=== PATIENT | female | born 1945 | race Caucasian/White ===

== ENCOUNTER 2021-01-16 15:56 | Emergency (ER) | payer MEDICARE, OTHER ==
[2021-01-16 17:43] LABS: BASOPHIL 0.3 % (0-2); EOSINOPHIL 0.8 % (0-7); HGB 11.6 g/dl (12.5-16.0); LYMPHOCYTE 27.4 % (15-48); MCH 29.2 pg (25.0-31.0); MCHC 32.2 g/dL (32.0-36.0); MCV 90.7 fL (78.0-100.0); MONOCYTE 10.6 % (0-12); MPV 10.1 fL (6.0-9.5); NEUTROPHIL 60.7 % (41-80); NRBC 0; PLT 319 K/uL (150-400); RBC 3.97 M/uL (4.20-5.40); RDW 14.8 % (11.5-14.0); WBC 9.1 K/uL (4.0-10.5)
[2021-01-16 18:01] LABS: ALBUMIN 3.5 g/dL (3.4-5.0); BILIRUBIN - TOTAL 0.4 mg/dL (0.2-1.0); BUN/CREAT RATIO (CALC) 16.4 RATIO; CREATININE 0.55 mg/dL (0.51-0.95); GLOBULIN (CALCULATION) 3.2 g/dL; POTASSIUM 4.1 mmol/L (3.5-5.1); TOTAL PROTEIN 6.7 g/dL (6.4-8.2)
[2021-01-16 18:11] LABS: INR 2.85 (0.9-1.2); PROTHROMBIN TIME 28.5 SECONDS (11.4-13.6)
[2021-01-16 18:44] LABS: CORONAVIRUS 2019 SARS-COV-2 NEGATIVE (NEGATIVE); INFLUENZA A NAA NEGATIVE (NEGATIVE)
== END 2021-01-16 21:05 | disposition home or self-care (01) ==
LOC: FER 15:56
PROVIDERS: Nurse Practitioner Family
DX: R10.9 Unspecified abdominal pain (principal); R19.7 Diarrhea, unspecified; Z20.822 Contact with and (suspected) exposure to COVID-19; I10 Essential (primary) hypertension; Z88.2 Allergy status to sulfonamides; Z88.8 Allergy status to other drugs, medicaments and biological substances
CPT/HCPCS: 36415; 80053; 85025; 85610; 93005; J2405; J7030; Q9967; U0002

== ENCOUNTER 2021-01-24 15:42 | Emergency (ER) | payer MEDICARE, OTHER ==
[2021-01-24 18:19] LABS: BASOPHIL 0.6 % (0-2); EOSINOPHIL 1.1 % (0-7); HCT 35.2 % (37.0-47.0); HGB 11.5 g/dl (12.5-16.0); LYMPHOCYTE 26.9 % (15-48); MCH 29.6 pg (25.0-31.0); MCHC 32.7 g/dL (32.0-36.0); MCV 90.5 fL (78.0-100.0); MONOCYTE 9.9 % (0-12); MPV 9.9 fL (6.0-9.5); NEUTROPHIL 61.2 % (41-80); NRBC 0; PLT 313 K/uL (150-400); RBC 3.89 M/uL (4.20-5.40); RDW 14.8 % (11.5-14.0); WBC 8.7 K/uL (4.0-10.5)
[2021-01-24 18:33] LABS: TOTAL CELL COUNT 100
[2021-01-24 18:36] LABS: BAND 4 % (0-10); EOSINOPHIL(M) 1 % (0-7); LYMPHOCYTE(M) 23 % (15-48); MONOCYTE(M) 6 % (0-12); NEUTROPHILS(M) 66 % (41-80); PLATELET ESTIMATE NORMAL; PLATELET MORPHOLOGY NORMAL
[2021-01-24 18:41] LABS: ALBUMIN 3.4 g/dL (3.4-5.0); BILIRUBIN - TOTAL 0.2 mg/dL (0.2-1.0); BUN/CREAT RATIO (CALC) 25.9 RATIO; CREATININE 0.54 mg/dL (0.51-0.95); GLOBULIN (CALCULATION) 3.2 g/dL; POTASSIUM 4.1 mmol/L (3.5-5.1); TOTAL PROTEIN 6.6 g/dL (6.4-8.2)
[2021-01-24 19:13] LABS: INR 2.92 (0.9-1.2); PROTHROMBIN TIME 29.1 SECONDS (11.4-13.6)
== END 2021-01-24 20:39 | disposition home or self-care (01) ==
LOC: FER 15:42
PROVIDERS: Emergency Medicine
DX: I35.0 Nonrheumatic aortic (valve) stenosis (principal); I10 Essential (primary) hypertension; Z86.73 Personal history of transient ischemic attack (TIA), and cerebral infarction without residual deficits; Z86.711 Personal history of pulmonary embolism; Z86.718 Personal history of other venous thrombosis and embolism; Z88.2 Allergy status to sulfonamides; Z88.8 Allergy status to other drugs, medicaments and biological substances
CPT/HCPCS: 36415; 71045; 80053; 83880; 84145; 84484; 85379; 85610; 93005

== ENCOUNTER 2021-04-25 12:59 | Inpatient (IN) | payer MEDICARE, OTHER ==
[~2021-04-25] VITALS: Ht 155 cm; Wt 43.7 kg
[2021-04-25 14:44] LABS: BASOPHIL 0.3 % (0-2); EOSINOPHIL 0 % (0-7); HCT 16.3 % (37.0-47.0); LYMPHOCYTE 16.6 % (15-48); MCH 29.1 pg (25.0-31.0); MCHC 32.5 g/dL (32.0-36.0); MCV 89.6 fL (78.0-100.0); MONOCYTE 5.7 % (0-12); MPV 10.9 fL (6.0-9.5); NEUTROPHIL 75.8 % (41-80); NRBC 0; PLT 263 K/uL (150-400); RDW 15.4 % (11.5-14.0)
[2021-04-25 14:45] LABS: HGB 5.3 g/dl (12.5-16.0); RBC 1.82 M/uL (4.20-5.40)
[2021-04-25 15:09] LABS: LACTIC ACID 0.8 mmol/L (0.4-1.9)
[2021-04-25 15:11] LABS: PROTHROMBIN TIME 112.5 SECONDS (11.8-13.4)
[2021-04-25 15:12] LABS: INR 15.78 (0.9-1.2)
[2021-04-25 15:13] LABS: PTT 124.5 SECONDS (24.4-34.7)
[2021-04-25 15:25] LABS: ALBUMIN 2.6 g/dL (3.4-5.0); BILIRUBIN - TOTAL 0.2 mg/dL (0.2-1.0); BUN/CREAT RATIO (CALC) 50.9 RATIO; CREATININE 0.57 mg/dL (0.51-0.95); GLOBULIN (CALCULATION) 2.5 g/dL; POTASSIUM 4.4 mmol/L (3.5-5.1); TOTAL PROTEIN 5.1 g/dL (6.4-8.2)
[2021-04-25] MEDS ORDERED: OMEPRAZOLE40 MG PO (23:17)
[2021-04-25] MEDS ORDERED: TEMAZEPAM15 MG PO (23:17)
[2021-04-25] MEDS ORDERED: DULOXETINE HCL20 MG PO (23:18)
[2021-04-25] MEDS ORDERED: NIFEDIPINE ER30 M1 PO (23:18)
[2021-04-25] MEDS ORDERED: COZAAR100 MG PO (23:18)
[2021-04-25] MEDS ORDERED: LEVOTHYROXINE50 MCG PO (23:20)
[2021-04-25] MEDS ORDERED: WARFARIN SODIUM3 MG PO (23:22)
[2021-04-25] MEDS ORDERED: ATORVASTATIN CA40 MG PO (23:25)
[2021-04-25] MEDS ORDERED: SILDENAFIL20 MG PO (23:25)
[2021-04-25] MEDS ORDERED: FAMOTIDINE40 MG PO (23:26)
[2021-04-25] MEDS ORDERED: SENSIPAR30 MG PO ×2 (23:27→23:30)
[2021-04-25] MEDS ORDERED: XELPROS2.5 ML EYEBOTH (23:27)
[2021-04-25] MEDS ORDERED: ASPIRIN EC81 MG PO (23:31)
[2021-04-26 06:41] LABS: BASOPHIL 0.3 % (0-2); EOSINOPHIL 0.7 % (0-7); HCT 21.8 % (37.0-47.0); LYMPHOCYTE 17.7 % (15-48); MCHC 32.6 g/dL (32.0-36.0); MPV 10.6 fL (6.0-9.5); NEUTROPHIL 71.3 % (41-80); NRBC 0; PLT 177 K/uL (150-400); RBC 2.45 M/uL (4.20-5.40); RDW 14.8 % (11.5-14.0); WBC 11.1 K/uL (4.0-10.5)
[2021-04-26 06:45] LABS: HGB 7.1 g/dl (12.5-16.0)
[2021-04-26 06:59] LABS: INR 2.75 (0.9-1.2); PROTHROMBIN TIME 28.1 SECONDS (11.8-13.4); PTT 54.6 SECONDS (24.4-34.7)
[2021-04-26 07:12] LABS: ALBUMIN 2.4 g/dL (3.4-5.0); BILIRUBIN - TOTAL 0.3 mg/dL (0.2-1.0); BUN/CREAT RATIO (CALC) 35.2 RATIO; CREATININE 0.54 mg/dL (0.51-0.95); GLOBULIN (CALCULATION) 2.3 g/dL; MAGNESIUM 1.4 mg/dL (1.8-2.4); POTASSIUM 3.6 mmol/L (3.5-5.1); TOTAL PROTEIN 4.7 g/dL (6.4-8.2)
[2021-04-26 07:19] LABS: CKMB 1.5 ng/mL (0.0-3.6)
[2021-04-26 23:05] LABS: BILIRUBIN NEGATIVE (NEGATIVE); BLOOD 3+ Ery/uL (NEGATIVE); CLARITY CLEAR (CLEAR); COLOR YELLOW (YELLOW); GLUCOSE (U) NORMAL (NORMAL); LEUKOCYTES TRACE Leu/uL (NEGATIVE); NITRITE NEGATIVE (NEGATIVE); PROTEIN NEGATIVE (NEGATIVE); UROBILINOGEN 0.2 mg/dL (0.2-1.0); pH 5.5 (5.0-9.0)
[2021-04-26 23:14] LABS: BACTERIA TRACE; SQUAMOUS EPITHELIAL CELLS RARE
[2021-04-27 07:04] LABS: INR 1.73 (0.9-1.2); PROTHROMBIN TIME 19.5 SECONDS (11.8-13.4)
[2021-04-27 07:05] LABS: BASOPHIL 0.3 % (0-2); EOSINOPHIL 2.3 % (0-7); HCT 26.4 % (37.0-47.0); HGB 8.7 g/dl (12.5-16.0); LYMPHOCYTE 14.7 % (15-48); MCH 29.6 pg (25.0-31.0); MCV 89.8 fL (78.0-100.0); MONOCYTE 8.2 % (0-12); MPV 10.6 fL (6.0-9.5); NEUTROPHIL 73.7 % (41-80); NRBC 0; PLT 213 K/uL (150-400); RBC 2.94 M/uL (4.20-5.40); RDW 15.3 % (11.5-14.0); WBC 11.9 K/uL (4.0-10.5)
[2021-04-27 07:31] LABS: BUN/CREAT RATIO (CALC) 28.6 RATIO; CREATININE 0.49 mg/dL (0.51-0.95); MAGNESIUM 1.6 mg/dL (1.8-2.4); POTASSIUM 3.5 mmol/L (3.5-5.1)
--- NOTE | 2021-04-27 14:47 | NUR ---
04/27/21 Ms. Adams lives alone. She does not use any DME. [facility] recently discharged Ms. Adams and she would like [facility]. [facility]. Please notify [facility] at [phone] at discharge. - Ms. Adams and her daughter, who lives 1.5 hours away, are concerned about Ms. Adams being alone. They were provided with a list of sitter services and educated to [facility]. - Ms. Adams receives meals from the [facility]. - They are also considerly for Ms. Adams to go to the home of her daughter for several days. - Ms. Adams inquired about Hospice services. [facility] was informed and will review her medical records for the appropriateness of Hospice.
[2021-04-27 23:42] LABS: HCT 27.6 % (37.0-47.0); HGB 9.1 g/dL (12.5-16.0)
[2021-04-27 23:53] LABS: INR 1.5 (0.9-1.2); PROTHROMBIN TIME 17.4 SECONDS (11.8-13.4); PTT 43.4 SECONDS (24.4-34.7)
[2021-04-28 04:47] LABS: BASOPHIL 0.3 % (0-2); EOSINOPHIL 3.3 % (0-7); HCT 26.9 % (37.0-47.0); HGB 8.7 g/dl (12.5-16.0); LYMPHOCYTE 12.7 % (15-48); MCH 28.9 pg (25.0-31.0); MCHC 32.3 g/dL (32.0-36.0); MCV 89.4 fL (78.0-100.0); MONOCYTE 9.9 % (0-12); MPV 10.5 fL (6.0-9.5); NRBC 0; PLT 239 K/uL (150-400); RBC 3.01 M/uL (4.20-5.40); RDW 15.3 % (11.5-14.0); WBC 13.5 K/uL (4.0-10.5)
[2021-04-28 05:04] LABS: BUN/CREAT RATIO (CALC) 20.8 RATIO; CREATININE 0.48 mg/dL (0.51-0.95); MAGNESIUM 1.7 mg/dL (1.8-2.4); POTASSIUM 3.2 mmol/L (3.5-5.1)
[2021-04-29 04:36] LABS: BASOPHIL 0.5 % (0-2); EOSINOPHIL 3.8 & (0-7); HCT 28.8 % (37.0-47.0); HGB 9.2 g/dl (12.5-16.0); LYMPHOCYTE 14.8 % (15-48); MCHC 31.9 g/dL (32.0-36.0); MCV 90.9 fL (78.0-100.0); MONOCYTE 9.6 % (0-12); MPV 10.1 fL (6.0-9.5); NEUTROPHIL 71.1 % (41-80); PLT 309 K/uL (150-400); RBC 3.17 M/uL (4.20-5.40); RDW 15.6 % (11.5-14.0); WBC 9.98 K/uL (4.0-10.5)
[2021-04-29 04:56] LABS: BUN/CREAT RATIO (CALC) 17.6 RATIO; CREATININE 0.51 mg/dL (0.51-0.95); MAGNESIUM 1.8 mg/dL (1.8-2.4); POTASSIUM 4.2 mmol/L (3.5-5.1)
[2021-04-30 04:17] LABS: BASOPHIL 0.4 % (0-2); EOSINOPHIL 2.9 & (0-7); HCT 30.3 % (37.0-47.0); HGB 9.6 g/dl (12.5-16.0); LYMPHOCYTE 14.5 % (15-48); MCHC 31.7 g/dL (32.0-36.0); MCV 91.5 fL (78.0-100.0); MONOCYTE 10.2 % (0-12); MPV 9.9 fL (6.0-9.5); NEUTROPHIL 71.8 % (41-80); PLT 401 K/uL (150-400); RBC 3.31 M/uL (4.20-5.40); RDW 15.6 % (11.5-14.0); WBC 12.31 K/uL (4.0-10.5)
[2021-04-30 04:21] LABS: INR 1.06 (0.9-1.2); PROTHROMBIN TIME 13.2 SECONDS (11.8-13.4)
[2021-04-30 04:34] LABS: CREATININE 0.46 mg/dL (0.51-0.95); POTASSIUM 4.1 mmol/L (3.5-5.1)
--- NOTE | 2021-04-30 13:00 | NUR ---
04/30/21 Ms. Adams has requested to speak with Hospice. A referral was made to Danisha Mcdonald, requesting a face to face interview. Ms. Adams would like a SNF placement for short term mica. Referrals have been made to [facility] and [facility] per her request. ([facility] notes are pending).
[2021-05-01 06:50] LABS: BASOPHIL 0.6 % (0-2); EOSINOPHIL 5.1 % (0-7); HGB 8.8 g/dl (12.5-16.0); MCH 28.9 pg (25.0-31.0); MCHC 31.4 g/dL (32.0-36.0); MCV 92.1 fL (78.0-100.0); MONOCYTE 10.8 % (0-12); MPV 9.5 fL (6.0-9.5); NEUTROPHIL 65.1 % (41-80); NRBC 0; PLT 364 K/uL (150-400); RBC 3.04 M/uL (4.20-5.40); RDW 15.5 % (11.5-14.0); WBC 8.4 K/uL (4.0-10.5)
[2021-05-01 07:14] LABS: BUN/CREAT RATIO (CALC) 12.2 RATIO; CREATININE 0.49 mg/dL (0.51-0.95); POTASSIUM 3.7 mmol/L (3.5-5.1)
[2021-05-01 13:55] LABS: HCT 30.7 % (37.0-47.0); HGB 9.7 g/dl (12.5-16.0); MCH 28.8 pg (25.0-31.0); MCHC 31.6 g/dL (32.0-36.0); MCV 91.1 fL (78.0-100.0); MPV 9.7 fL (6.0-9.5); RBC 3.37 M/uL (4.20-5.40); RDW 15.5 % (11.5-14.0); WBC 9.7 K/uL (4.0-10.5)
--- NOTE | 2021-05-01 15:33 | NUR ---
05/01/21 [facility] has accepted Ms. Adams for admission today. Dr. Maxwell ordered a COVID test per [facility]'s request. - Ms. Adams reports that her grandson can transport her. - Report given to LUZMA Menard RN.
[2021-05-01] MEDS ORDERED: WARFARIN SODIUM3 MG PO (17:37)
[2021-05-01] MEDS ORDERED: LOVENOX40 MG/0.4 SC ×2 (17:37→17:46)
--- NOTE | 2021-05-01 19:46 | NUR ---
PT ROLLED DOWN TO ER ENTRANCE VIA WHEELCHAIR, AND FIELD MANAGER BY [facility]. PT VALUABLES WITH HER AND DISCHARGER PAPERWORK WITH PT.
[2021-05-03 11:10] LABS: 5-HIAA, URINE 3.5 mg/L (Undefined)
== END 2021-05-01 19:30 | DRG 813 ==
LOC: FER 12:59 → FTCU 17:24
PROVIDERS: Emergency Medicine; Internal Medicine; Nurse Practitioner; Student in an Organized Health Care Education/Training Program; ADMIT Internal Medicine
PROC: 30233N1 Transfusion of Nonautologous Red Blood Cells into Peripheral Vein, Percutaneous Approach (ICD-10-PCS; principal; 2021-04-25)
PROC: 30233N1 Transfusion of Nonautologous Red Blood Cells into Peripheral Vein, Percutaneous Approach (ICD-10-PCS; 2021-04-26)
PROC: 30233K1 Transfusion of Nonautologous Frozen Plasma into Peripheral Vein, Percutaneous Approach (ICD-10-PCS; 2021-04-26)
PROC: 0DJ08ZZ Inspection of Upper Intestinal Tract, Via Natural or Artificial Opening Endoscopic (ICD-10-PCS; 2021-04-27)
PROC: 0DJD8ZZ Inspection of Lower Intestinal Tract, Via Natural or Artificial Opening Endoscopic (ICD-10-PCS; 2021-04-30)
DX: D68.32 Hemorrhagic disorder due to extrinsic circulating anticoagulants (principal); D68.51 Activated protein C resistance; D62 Acute posthemorrhagic anemia; K92.1 Melena; T45.515A Adverse effect of anticoagulants, initial encounter; I48.0 Paroxysmal atrial fibrillation; Z20.822 Contact with and (suspected) exposure to COVID-19; E03.9 Hypothyroidism, unspecified; E21.3 Hyperparathyroidism, unspecified; K62.3 Rectal prolapse; K57.30 Diverticulosis of large intestine without perforation or abscess without bleeding; M34.9 Systemic sclerosis, unspecified; K44.9 Diaphragmatic hernia without obstruction or gangrene; K29.60 Other gastritis without bleeding; E55.9 Vitamin D deficiency, unspecified; Z86.718 Personal history of other venous thrombosis and embolism; Z79.01 Long term (current) use of anticoagulants; Z79.82 Long term (current) use of aspirin; Z79.899 Other long term (current) drug therapy; Z79.890 Hormone replacement therapy; Z90.710 Acquired absence of both cervix and uterus; Z88.2 Allergy status to sulfonamides; Z88.8 Allergy status to other drugs, medicaments and biological substances; Z86.711 Personal history of pulmonary embolism
CPT/HCPCS: 36415; 36430; 72193; 78278; 80048; 80053; 81001; 82150; 82553; 82570; 83497; 83605; 83690; 83735; 84145; 84484; 85014; 85018; 85025; 85610; 85730; 86316; 86850; 86900; 86901; 86922; 87040; 87045; 87046; 87088; 87449; 93005; 94010; 94762; 96372; 97116; 97161; A4641; A9560; C9113; J1170; J1610; J1650; J1885; J2250; J2270; J2405; J2704; J3010; J3430; J3475; J7030; J7040; J7120; P9016; P9017; Q9967; U0002